=== PATIENT | female | born 1975 | race Caucasian/White ===

== ENCOUNTER 2020-12-17 08:15 | Outpatient (CLI) | payer OTHER ==
--- NOTE | 2020-12-20 12:57 | Mammography Report ---
BILATERAL DIGITAL DIAGNOSTIC MAMMOGRAM 3D/2D: 12/17/2020 CLINICAL: Palpable right breast lump. Comparison is made to exams dated: 11/27/2018 mammogram, 11/12/2017 mammogram, and 10/03/2016 mammogram - [facility]. The tissue of both breasts is heterogeneously dense. This may lower the sensi tivity of mammography. No significant masses, calcifications, or other findings are seen in either breast. IMPRESSION: INCOMPLETE: NEEDS ADDITIONAL IMAGING EVALUATION There is no abnormality seen in the right breast to correspond with the area of clinical concern and palpable abnormality indicated by triangular marker in the lower aspect of the anterior-middle depth of the right breast. An ultrasound is recommended for further evaluation and is scheduled to immediately follow this exami [facility]. This exam was interpreted at Station ID: [id number]. NOTE: For mammograms, a report in lay terms will be sent to the patient. Approximately 15% of breast malignancies will not be visualized mammographically. In the management of a palpable breast mass, a negative mammogram must not discourage biopsy of a clinically suspicious lesion. Electronically Signed By: Coleman Paul M.D. aty/:12/17/2020 09:42:13 ACR BI-RADS Category 0: Incomplete 3340F PARENCHYMAL PATTERN: (D) - The breast(s) demonstrate(s) heterogeneously dense fibroglandular nahomy chavira. BI-RADS CATEGORY: (0) - 0 Ultrasound [id number] Immediate follow-up LATERALITY: (R)
--- NOTE | 2020-12-20 12:57 | Ultrasound Report ---
LIMITED ULTRASOUND OF RIGHT BREAST: 12/17/2020 CLINICAL: Palpable right breast lump. No prior exams were available for comparison. Real-time ultrasound of the right breast 5 o'clock region was performed. Corona scale images of the re al-time examination were reviewed. No significant abnormalities were seen sonographically in the right breast. IMPRESSION: NEGATIVE There is no sonographic evidence of malignancy. There is no abnormality seen in the right breast to correspond with the area of clinical concern and palpable abnormality indicated by triangular marker at 5 o'clock axis/lower inner quadrant, however, recommend clinical follow up for persistent or worsening symptoms, or development of any clinically s uspicious findings. A 1 year screening mammogram is recommended. Findings and recommendations were conveyed to the patient during today's evaluation. This exam was interpreted at Station ID: [id number]. Electronically Signed By: Coleman Paul M.D. aty/:12/17/2020 10:29:47 Ultrasound BI-RADS: 1 Negative BI-RADS CATEGORY: (1) - 1 RECOMMENDATION: (ANNUAL) - Recommend routine annual screening mammography. [id number] 1 year screening LATERALITY: (B)
== END 2020-12-17 08:16 | disposition home or self-care (01) ==
LOC: DI 08:15
DX: N63.10 Unspecified lump in the right breast, unspecified quadrant (principal)